=== PATIENT | female | born 1970 ===

== ENCOUNTER 2020-07-10 19:30 | Outpatient (CLI) | payer OTHER | END 2020-07-10 19:31 | disposition home or self-care (01) | LOC: SLEEPLAB 19:30 | PROVIDERS: ATTEND Family Medicine | DX: G47.33 Obstructive sleep apnea (adult) (pediatric) (principal); R06.83 Snoring; G47.00 Insomnia, unspecified; G47.10 Hypersomnia, unspecified; F41.9 Anxiety disorder, unspecified | CPT/HCPCS: 95810 ==